=== PATIENT | female | born 1955 | race African-American/Black ===

== ENCOUNTER → 2016-10-05 | Outpatient (CLI) | payer MEDICAID ==
[~2016-10-05] VITALS: Ht 172.7 cm; Wt 133.4 kg
[~2016-10-05] MED LIST: 00186-0370-20 IH; ACCUPRIL40MGTAB PO; ADALAT CC60 MG PO; ALDACTONE50 MG PO; APRESOLINE 25MG25 MG PO; CATAPRES 0.1MG0.1 MG PO; CATAPRES-TTS 30.3 MG TD; DESYREL 50MG50 MG PO; FLEXERIL 1010 MG/TAB PO; FLOVENT 110MCG7.9 GM IH; HCTZ12.5TAB PO; HYGROTON50 MG PO; LASIX 40MG TABL40 MG PO; LIPITOR 10MG10 MG PO; NAPROSYN500 MG PO; NORVASC 10MG10 MG PO; PERCOCET 325 MG1 TAB PO; PLAVIX 75MG TAB75 MG PO; PRIL40 PO; PROAIR HFA0.09 MG/AC IH; PROTONIX20 MG PO; TOPROL XL100 MG PO; TOPROL XL200 MG PO; TYLENOL 325MG325 MG PO; ULTRAM 50MG TAB50 MG PO
== END ==
LOC: LIGHT 05-04 14:29
DX: I10 Essential (primary) hypertension (principal); G47.33 Obstructive sleep apnea (adult) (pediatric); E66.01 Morbid (severe) obesity due to excess calories; Z68.41 Body mass index [BMI] 40.0-44.9, adult; M15.8 Other polyosteoarthritis

== ENCOUNTER → 2017-01-03 | Outpatient (CLI) | payer MEDICAID | LOC: MHCPAIN 08:57 | DX: G89.29 Other chronic pain (principal); M47.817 Spondylosis without myelopathy or radiculopathy, lumbosacral region; M54.16 Radiculopathy, lumbar region; M53.3 Sacrococcygeal disorders, not elsewhere classified | CPT/HCPCS: G0463 ==

== ENCOUNTER 2017-03-27 11:33 | Emergency (ER) | payer MEDICAID ==
[~2017-03-27] VITALS: Ht 175.3 cm; Wt 128.6 kg
[~2017-03-27 11:33] MED LIST changes: -00186-0370-20 IH; -ADALAT CC60 MG PO; -APRESOLINE 25MG25 MG PO; -HYGROTON50 MG PO; -LASIX 40MG TABL40 MG PO; -PROTONIX20 MG PO
[2017-03-27 11:35] VITALS: TEMP 97
[2017-03-27 12:05] LABS: BASO % 0.3 % (0.0-2.0); EOS # 0.1 (0.0-0.7); EOS % 1.7 % (0-4.0); GRAN # 3.8 (1.4-6.5); LYMPH # 2.4 (1.2-3.4); LYMPH % 35.3 % (20.0-51.0); MEAN CELL VOLUME 84 fl (80.0-100.0); MEAN CORPUSCULAR HEMOGLOBIN 26 pg (27.0-31.0); MEAN CORPUSCULAR HGB CONC 32 g/dl (33.0-37.0); MEAN PLATELET VOLUME 10.5 fl (7.4-10.4); MONO # 0.4 (0.1-0.6); MONO % 6.3 % (1.7-9.3); PLATELET COUNT 305 K/mm3 (130-400); RED BLOOD COUNT 4.55 M/mm3 (4.10-5.30); REDCELL DISTRIBUTION WIDTH-CV 16.4 % (11.5-14.5); WHITE BLOOD COUNT 6.9 K/mm3 (4.8-10.8)
[2017-03-27 12:11] LABS: PROTHROMBIN TIME 11.3 SECONDS (9.7-12.8)
[2017-03-27 12:14] LABS: PARTIAL THROMBOPLASTIN TIME 28.8 SECONDS (26.0-37.0)
[2017-03-27 12:15] LABS: ADJUSTED CALCIUM 8.9 mg/dL (8.4-10.2); ALBUMIN 3.7 gm/dL (3.5-5.0); BILIRUBIN,TOTAL 0.6 mg/dL (0.0-1.0); CALCIUM 8.7 mg/dL (8.4-10.2); CREATININE, serum 1.11 mg/dL (0.52-1.25); POTASSIUM 3.5 mmol/L (3.4-5.0); TOTAL PROTEIN 8.4 gm/dL (6.4-8.2)
[2017-03-27] MEDS ORDERED: HYGROTON50 MG PO (12:23)
[2017-03-27 12:25] LABS: TROPONIN-I 0.028 ng/mL (0.000-0.034)
[2017-03-27] MEDS ORDERED: LASIX 40MG TABL40 MG PO (12:25)
[2017-03-27] MEDS ORDERED: APRESOLINE 25MG25 MG PO (12:25)
[2017-03-27] MEDS ORDERED: PROTONIX20 MG PO (12:27)
[2017-03-27] MEDS ORDERED: 00186-0370-20 IH (12:28)
[2017-03-27] MEDS ORDERED: ADALAT CC60 MG PO (12:28)
[2017-03-27 12:58] VITALS: BP 191/110; PULSE 81
== END 2017-03-27 13:00 | disposition home or self-care (01) ==
LOC: COL.ER 11:33
PROVIDERS: Family Medicine
DX: I10 Essential (primary) hypertension (principal); R51 Headache; Z79.02 Long term (current) use of antithrombotics/antiplatelets

== ENCOUNTER 2017-06-22 12:23 | Inpatient (IN) | payer MEDICAID ==
[~2017-06-22] VITALS: Ht 175.3 cm; Wt 128.0 kg
[2017-06-22] VITALS (224 sets, daily range): BP systolic 184; BP diastolic 109; PULSE 84; TEMP 97.8; O2SAT 83–96
[~2017-06-22 12:23] MED LIST changes: +00186-0370-20 IH; +ADALAT CC60 MG PO; +APRESOLINE 25MG25 MG PO; +HYGROTON50 MG PO; +LASIX 40MG TABL40 MG PO; +PROTONIX20 MG PO
[2017-06-22] MEDS ORDERED: NEURONTIN600 MG/TAB PO (12:44)
[2017-06-22] MEDS ORDERED: IMDUR 30MG30 MG/TAB PO (12:45)
[2017-06-22 13:02] LABS: BASO % 0.3 % (0.0-2.0); EOS # 0.2 (0.0-0.7); EOS % 2.6 % (0-4.0); GRAN # 4.3 (1.4-6.5); GRAN % 55.7 % (42.2-75.2); HEMATOCRIT 38.2 % (37.0-47.0); LYMPH # 2.6 (1.2-3.4); LYMPH % 33.7 % (20.0-51.0); MEAN CELL VOLUME 85 fl (80.0-100.0); MEAN CORPUSCULAR HEMOGLOBIN 27 pg (27.0-31.0); MEAN CORPUSCULAR HGB CONC 31 g/dl (33.0-37.0); MEAN PLATELET VOLUME 10.4 fl (7.4-10.4); MONO # 0.6 (0.1-0.6); MONO % 7.4 % (1.7-9.3); PLATELET COUNT 294 K/mm3 (130-400); RED BLOOD COUNT 4.49 M/mm3 (4.10-5.30); WHITE BLOOD COUNT 7.7 K/mm3 (4.8-10.8)
[2017-06-22 13:10] LABS: PROTHROMBIN TIME 11.2 SECONDS (9.7-12.8)
[2017-06-22 13:13] LABS: PARTIAL THROMBOPLASTIN TIME 26.3 SECONDS (26.0-37.0)
[2017-06-22 13:30] LABS: ADJUSTED CALCIUM 9.1 mg/dL (8.4-10.2); ALBUMIN 3.9 gm/dL (3.5-5.0); BILIRUBIN,TOTAL 0.5 mg/dL (0.0-1.0); CREATININE, serum 1.27 mg/dL (0.52-1.25)
[2017-06-22 13:42] LABS: TROPONIN-I 0.023 ng/mL (0.000-0.034)
[2017-06-22 15:17] LABS: C-REACTIVE PROTEIN 2.5 mg/dL (0.0-0.9)
[2017-06-22 16:50] LABS: TROPONIN-I 0.024 ng/mL (0.000-0.034)
[2017-06-22] MEDS ORDERED: VOLTAREN GEL 1%1 TU TP (20:01)
[2017-06-22] MEDS ORDERED: LASIX 20MG TABL20 MG PO (20:12)
[2017-06-23] VITALS (520 sets, daily range): BP systolic 127–153; BP diastolic 80–114; PULSE 77–97; TEMP 97.4–98.3; O2SAT 82–99
[2017-06-24 04:12] VITALS: BP 120/83; PULSE 79; TEMP 97.7
[2017-06-24 07:53] VITALS: BP 144/82; PULSE 66; TEMP 98.1
[2017-06-24 12:29] VITALS: BP 155/98; PULSE 87; TEMP 98.8
[2017-06-24 17:04] VITALS: BP 150/102; PULSE 93; TEMP 97.9
[2017-06-24 20:22] VITALS: BP 160/100; PULSE 94; TEMP 98.3
[2017-06-24 23:26] VITALS: BP 124/100; PULSE 98; TEMP 99.4
[2017-06-25 04:33] VITALS: BP 149/110; PULSE 91; TEMP 98.6
[2017-06-25] MEDS ORDERED: CATAPRES-TTS 30.3 MG TD (07:50)
[2017-06-25 07:55] VITALS: BP 138/81; PULSE 95; TEMP 98.2
[2017-06-25] MEDS ORDERED: PROCARDIA XL 3030 MG PO (10:20)
[2017-06-25] MEDS ORDERED: LASIX 20MG TABL20 MG PO (10:21)
[2017-06-25] MEDS ORDERED: HCTZ 25MG TAB25 MG PO (10:21)
[2017-06-25 12:26] VITALS: BP 136/89; PULSE 91; TEMP 98
== END 2017-06-25 12:56 | disposition home or self-care (01) | DRG 305 ==
LOC: COL.ER 12:23 → MEDICAL 17:29 → ICU 17:29 → MEDICAL 06-23 15:13
PROVIDERS: Emergency Medicine
DX: I16.0 Hypertensive urgency (principal); I12.9 Hypertensive chronic kidney disease with stage 1 through stage 4 chronic kidney disease, or unspecified chronic kidney disease; N18.9 Chronic kidney disease, unspecified; D64.9 Anemia, unspecified
CPT/HCPCS: 99231-AI; 99232-AI; J0360; J1170; J1644; J2270; J2405; J2550; J7050

== ENCOUNTER → 2017-11-22 | Outpatient (CLI) | payer MEDICAID ==
[~2017-11-22] VITALS: Ht 175.3 cm; Wt 132.9 kg
[~2017-11-22] MED LIST changes: +DAZIDOX10 MG PO; +HCTZ 25MG TAB25 MG PO; +IMDUR 30MG30 MG/TAB PO; +LASIX 20MG TABL20 MG PO; +NEURONTIN600 MG/TAB PO; -PERCOCET 325 MG1 TAB PO; +PROCARDIA XL 3030 MG PO; +VOLTAREN GEL 1%1 TU TP
[2017-11-22 08:41] VITALS: BP 170/96; PULSE 68
== END ==
LOC: LIGHT
DX: I10 Essential (primary) hypertension (principal); G47.33 Obstructive sleep apnea (adult) (pediatric); E66.01 Morbid (severe) obesity due to excess calories; Z68.41 Body mass index [BMI] 40.0-44.9, adult; Z71.3 Dietary counseling and surveillance; M15.9 Polyosteoarthritis, unspecified
CPT/HCPCS: G0463

== ENCOUNTER → 2017-12-20 | Outpatient (CLI) | payer MEDICAID ==
[~2017-12-20] VITALS: Ht 175.3 cm; Wt 130.2 kg
[~2017-12-20] MED LIST changes: +PROCARDIA XL 6060 MG PO
[2017-12-20 10:29] VITALS: BP 142/104; PULSE 88
== END ==
LOC: LIGHT 10:14
DX: I10 Essential (primary) hypertension (principal); G47.33 Obstructive sleep apnea (adult) (pediatric); E66.01 Morbid (severe) obesity due to excess calories; Z68.41 Body mass index [BMI] 40.0-44.9, adult; Z71.3 Dietary counseling and surveillance; M15.9 Polyosteoarthritis, unspecified
CPT/HCPCS: G0463

== ENCOUNTER 2018-02-28 12:30 | Outpatient (RCR) | payer MEDICAID ==
[2018-03-01] MEDS ORDERED: DULCOLAX TAB5 MG PO (10:31)
[2018-03-01] MEDS ORDERED: COREG 25MG25 MG/TAB PO (10:32)
[2018-03-01] MEDS ORDERED: LASIX 20MG TABL20 MG PO (10:33)
[2018-03-01] MEDS ORDERED: ZOFRAN ODT4 MG PO (10:33)
[2018-03-01] MEDS ORDERED: LIPITOR 40MG TA40 MG PO (10:34)
[2018-03-01] MEDS ORDERED: CARAFATE S1 GM/10 ML PO (10:34)
[2018-03-01] MEDS ORDERED: K-DUR20 MEQ PO (10:35)
== END 2018-03-06 11:16 | disposition home or self-care (01) ==
LOC: WSPT 12:30
DX: M54.5 Low back pain (principal); G89.29 Other chronic pain

== ENCOUNTER 2018-03-01 09:52 | Day surgery (SDC) | payer MEDICAID ==
[~2018-03-01] VITALS: Ht 175.3 cm; Wt 133.3 kg
[2018-03-01 10:10] VITALS: BP 197/137; PULSE 85; TEMP 98.2
[2018-03-01] MEDS ORDERED: DULCOLAX TAB5 MG PO (10:31)
[2018-03-01] MEDS ORDERED: COREG 25MG25 MG/TAB PO (10:32)
[2018-03-01] MEDS ORDERED: ZOFRAN ODT4 MG PO (10:33)
[2018-03-01] MEDS ORDERED: LASIX 20MG TABL20 MG PO (10:33)
[2018-03-01] MEDS ORDERED: CARAFATE S1 GM/10 ML PO (10:34)
[2018-03-01] MEDS ORDERED: LIPITOR 40MG TA40 MG PO (10:34)
[2018-03-01] MEDS ORDERED: K-DUR20 MEQ PO (10:35)
[2018-03-01 11:35] VITALS: BP 172/104; PULSE 84; TEMP 97.6
[2018-03-01 11:50] VITALS: BP 160/116; PULSE 88
[2018-03-01 12:05] VITALS: BP 161/149; PULSE 84
[2018-03-01 13:58] VITALS: BP 179/120; PULSE 84
== END 2018-03-01 12:55 | disposition home or self-care (01) ==
LOC: SDCO 09:52
DX: K21.9 Gastro-esophageal reflux disease without esophagitis (principal); J45.909 Unspecified asthma, uncomplicated; K59.00 Constipation, unspecified; D50.9 Iron deficiency anemia, unspecified; E66.01 Morbid (severe) obesity due to excess calories; I25.10 Atherosclerotic heart disease of native coronary artery without angina pectoris; I12.9 Hypertensive chronic kidney disease with stage 1 through stage 4 chronic kidney disease, or unspecified chronic kidney disease; N18.3 Chronic kidney disease, stage 3 (moderate); G47.33 Obstructive sleep apnea (adult) (pediatric); M17.9 Osteoarthritis of knee, unspecified; G89.29 Other chronic pain; Z86.73 Personal history of transient ischemic attack (TIA), and cerebral infarction without residual deficits; Z79.82 Long term (current) use of aspirin
CPT/HCPCS: J2704

== ENCOUNTER 2018-05-06 12:12 | Inpatient (IN) | payer MEDICAID ==
[2018-05-06] VITALS (14 sets, daily range): BP systolic 124–166; BP diastolic 75–104; PULSE 70–78; TEMP 97–98; O2SAT 91–100
[~2018-05-06] VITALS: Ht 175.3 cm; Wt 138.0 kg
[~2018-05-06 12:12] MED LIST changes: +CARAFATE S1 GM/10 ML PO; +COREG 25MG25 MG/TAB PO; +DULCOLAX TAB5 MG PO; +K-DUR20 MEQ PO; +LIPITOR 40MG TA40 MG PO; +ZOFRAN ODT4 MG PO
[2018-05-06 12:56] LABS: BASO % 0.4 % (0.0-2.0); EOS # 0.1 (0.0-0.7); EOS % 1.5 % (0-4.0); GRAN # 4.4 (1.4-6.5); GRAN % 56.6 % (42.2-75.2); HEMOGLOBIN 11.9 g/dl (12.5-16.0); LYMPH # 2.7 (1.2-3.4); LYMPH % 34.2 % (20.0-51.0); MEAN CELL VOLUME 85 fl (80.0-100.0); MEAN CORPUSCULAR HEMOGLOBIN 27 pg (27.0-31.0); MEAN CORPUSCULAR HGB CONC 32 g/dl (33.0-37.0); MEAN PLATELET VOLUME 10.5 fl (7.4-10.4); MONO # 0.6 (0.1-0.6); PLATELET COUNT 262 K/mm3 (130-400); RED BLOOD COUNT 4.35 M/mm3 (4.10-5.30); REDCELL DISTRIBUTION WIDTH-CV 16.2 % (11.5-14.5)
[2018-05-06 13:01] LABS: PROTHROMBIN TIME 11.8 SECONDS (9.7-12.8)
[2018-05-06 13:04] LABS: PARTIAL THROMBOPLASTIN TIME 30.8 SECONDS (26.0-37.0)
[2018-05-06 13:12] LABS: ALBUMIN 3.5 gm/dL (3.5-5.0); BILIRUBIN,TOTAL 0.4 mg/dL (0.0-1.0); C-REACTIVE PROTEIN 2.5 mg/dL (0.0-0.9); CALCIUM 8.5 mg/dL (8.4-10.2); CREATININE, serum 1.32 mg/dL (0.52-1.25); POTASSIUM 3.6 mmol/L (3.4-5.0); TOTAL PROTEIN 8.1 gm/dL (6.4-8.2)
[2018-05-06 13:21] LABS: ERYTHROCYTE SEDIMENTATION RATE 48 mm/hr (0-30)
[2018-05-06 13:23] LABS: TROPONIN-I 0.036 ng/mL (0.000-0.034)
[2018-05-06] MEDS ORDERED: CARAFATE S1 GM/10 ML PO (13:46)
[2018-05-06] MEDS ORDERED: HYGROTON 2525 MG/TAB (13:48)
[2018-05-06] MEDS ORDERED: PROTONIX20 MG PO (13:49)
[2018-05-07] VITALS (601 sets, daily range): BP systolic 111–166; BP diastolic 79–98; PULSE 70–86; TEMP 97.1–98; O2SAT 56–100
[2018-05-07 05:56] LABS: BASO % 0.4 % (0.0-2.0); EOS # 0.1 (0.0-0.7); EOS % 1.8 % (0-4.0); GRAN # 4.3 (1.4-6.5); GRAN % 60.5 % (42.2-75.2); HEMOGLOBIN 11.2 g/dl (12.5-16.0); LYMPH # 2.1 (1.2-3.4); LYMPH % 29.1 % (20.0-51.0); MEAN CELL VOLUME 87 fl (80.0-100.0); MEAN CORPUSCULAR HEMOGLOBIN 26 pg (27.0-31.0); MEAN CORPUSCULAR HGB CONC 30 g/dl (33.0-37.0); MEAN PLATELET VOLUME 10.4 fl (7.4-10.4); MONO # 0.6 (0.1-0.6); MONO % 7.9 % (1.7-9.3); PLATELET COUNT 272 K/mm3 (130-400); RED BLOOD COUNT 4.25 M/mm3 (4.10-5.30); REDCELL DISTRIBUTION WIDTH-CV 16.1 % (11.5-14.5)
[2018-05-07 05:58] LABS: HEMATOCRIT 36.8 % (37.0-47.0)
[2018-05-07 06:08] LABS: CHOLESTEROL RISK RATIO 5.2
[2018-05-07 06:27] LABS: TROPONIN-I 0.037 ng/mL (0.000-0.034)
[2018-05-07 07:32] LABS: ALBUMIN 3.4 gm/dL (3.5-5.0); BILIRUBIN,TOTAL 0.2 mg/dL (0.0-1.0); CALCIUM 8.1 mg/dL (8.4-10.2); CREATININE, serum 1.58 mg/dL (0.52-1.25); POTASSIUM 3.7 mmol/L (3.4-5.0); TOTAL PROTEIN 7.7 gm/dL (6.4-8.2)
[2018-05-08] VITALS (227 sets, daily range): BP systolic 114–164; BP diastolic 53–114; PULSE 57–87; TEMP 97.6–98.6; O2SAT 70–100
[2018-05-08 06:36] LABS: BASO % 0.4 % (0.0-2.0); EOS # 0.2 (0.0-0.7); EOS % 2.7 % (0-4.0); GRAN # 3.9 (1.4-6.5); GRAN % 53.8 % (42.2-75.2); LYMPH # 2.7 (1.2-3.4); LYMPH % 36.3 % (20.0-51.0); MEAN CELL VOLUME 87 fl (80.0-100.0); MEAN CORPUSCULAR HEMOGLOBIN 27 pg (27.0-31.0); MEAN CORPUSCULAR HGB CONC 31 g/dl (33.0-37.0); MEAN PLATELET VOLUME 11.1 fl (7.4-10.4); MONO # 0.5 (0.1-0.6); MONO % 6.4 % (1.7-9.3); PLATELET COUNT 274 K/mm3 (130-400); RED BLOOD COUNT 4.15 M/mm3 (4.10-5.30)
[2018-05-08 06:41] LABS: HEMATOCRIT 36.1 % (37.0-47.0)
[2018-05-08 06:47] LABS: ALBUMIN 3.4 gm/dL (3.5-5.0); BILIRUBIN,TOTAL 0.2 mg/dL (0.0-1.0); CALCIUM 8.5 mg/dL (8.4-10.2); CREATININE, serum 1.92 mg/dL (0.52-1.25); POTASSIUM 4.1 mmol/L (3.4-5.0); TOTAL PROTEIN 7.6 gm/dL (6.4-8.2)
[2018-05-09 00:41] VITALS: BP 139/88; PULSE 84; TEMP 98.5
[2018-05-09 04:00] VITALS: BP 141/85; PULSE 76; TEMP 98.5
[2018-05-09 06:35] LABS: BASO % 0.3 % (0.0-2.0); EOS # 0.1 (0.0-0.7); EOS % 1.8 % (0-4.0); GRAN # 4.6 (1.4-6.5); HEMATOCRIT 37.3 % (37.0-47.0); HEMOGLOBIN 11.6 g/dl (12.5-16.0); LYMPH # 2.2 (1.2-3.4); MEAN CELL VOLUME 86 fl (80.0-100.0); MEAN CORPUSCULAR HEMOGLOBIN 27 pg (27.0-31.0); MEAN CORPUSCULAR HGB CONC 31 g/dl (33.0-37.0); MEAN PLATELET VOLUME 10.8 fl (7.4-10.4); MONO # 0.6 (0.1-0.6); MONO % 7.6 % (1.7-9.3); PLATELET COUNT 293 K/mm3 (130-400); RED BLOOD COUNT 4.33 M/mm3 (4.10-5.30); REDCELL DISTRIBUTION WIDTH-CV 15.9 % (11.5-14.5)
[2018-05-09 06:48] LABS: ALBUMIN 3.6 gm/dL (3.5-5.0); BILIRUBIN,TOTAL 0.2 mg/dL (0.0-1.0); CALCIUM 8.4 mg/dL (8.4-10.2); CREATININE, serum 1.69 mg/dL (0.52-1.25); POTASSIUM 4.1 mmol/L (3.4-5.0); TOTAL PROTEIN 8.1 gm/dL (6.4-8.2)
[2018-05-09 07:31] VITALS: BP 147/80; PULSE 77; TEMP 97.9
[2018-05-09 12:20] VITALS: BP 129/86; PULSE 72; TEMP 97.9
[2018-05-09 15:19] VITALS: BP 116/84; PULSE 70; TEMP 98.1
[2018-05-09 19:31] VITALS: BP 114/86; PULSE 79; TEMP 98.8
[2018-05-10 03:43] VITALS: BP 123/88; PULSE 92; TEMP 98.2
[2018-05-10 08:01] LABS: BASO % 0.2 % (0.0-2.0); EOS # 0.1 (0.0-0.7); EOS % 1.2 % (0-4.0); GRAN # 4.8 (1.4-6.5); HEMOGLOBIN 11.1 g/dl (12.5-16.0); LYMPH # 2.6 (1.2-3.4); LYMPH % 31.7 % (20.0-51.0); MEAN CELL VOLUME 87 fl (80.0-100.0); MEAN CORPUSCULAR HEMOGLOBIN 26 pg (27.0-31.0); MEAN CORPUSCULAR HGB CONC 30 g/dl (33.0-37.0); MEAN PLATELET VOLUME 11.4 fl (7.4-10.4); MONO # 0.6 (0.1-0.6); MONO % 7.7 % (1.7-9.3); PLATELET COUNT 296 K/mm3 (130-400); RED BLOOD COUNT 4.21 M/mm3 (4.10-5.30); REDCELL DISTRIBUTION WIDTH-CV 16.1 % (11.5-14.5)
[2018-05-10 08:03] LABS: HEMATOCRIT 36.5 % (37.0-47.0)
[2018-05-10 08:16] LABS: ALBUMIN 3.6 gm/dL (3.5-5.0); BILIRUBIN,TOTAL 0.4 mg/dL (0.0-1.0); CALCIUM 8.7 mg/dL (8.4-10.2); CREATININE, serum 2.44 mg/dL (0.52-1.25); POTASSIUM 3.9 mmol/L (3.4-5.0); TOTAL PROTEIN 8.1 gm/dL (6.4-8.2)
[2018-05-10 08:58] VITALS: BP 144/88; PULSE 79; TEMP 98.5
[2018-05-10 12:33] VITALS: BP 122/81; PULSE 76; TEMP 98.6
[2018-05-10 16:48] VITALS: BP 126/77; PULSE 76; TEMP 98.7
[2018-05-10 19:35] VITALS: BP 124/82; PULSE 79; TEMP 98.4
[2018-05-10 23:41] VITALS: BP 126/78; PULSE 77; TEMP 98.4
[2018-05-11 03:54] VITALS: BP 136/85; PULSE 86; TEMP 98.3
[2018-05-11 06:49] LABS: BASO % 0.1 % (0.0-2.0); EOS # 0.2 (0.0-0.7); EOS % 1.9 % (0-4.0); GRAN # 5.3 (1.4-6.5); GRAN % 63.2 % (42.2-75.2); HEMOGLOBIN 10.9 g/dl (12.5-16.0); LYMPH # 2.4 (1.2-3.4); LYMPH % 28.2 % (20.0-51.0); MEAN CELL VOLUME 86 fl (80.0-100.0); MEAN CORPUSCULAR HEMOGLOBIN 26 pg (27.0-31.0); MEAN CORPUSCULAR HGB CONC 31 g/dl (33.0-37.0); MEAN PLATELET VOLUME 10.6 fl (7.4-10.4); MONO # 0.5 (0.1-0.6); MONO % 6.2 % (1.7-9.3); PLATELET COUNT 263 K/mm3 (130-400); RED BLOOD COUNT 4.16 M/mm3 (4.10-5.30); REDCELL DISTRIBUTION WIDTH-CV 16.1 % (11.5-14.5)
[2018-05-11 06:54] LABS: HEMATOCRIT 35.6 % (37.0-47.0)
[2018-05-11 07:10] LABS: CALCIUM 8.6 mg/dL (8.4-10.2); CREATININE, serum 2.36 mg/dL (0.52-1.25); MAGNESIUM 1.9 mg/dL (1.6-2.3); POTASSIUM 3.9 mmol/L (3.4-5.0)
[2018-05-11 07:26] VITALS: BP 132/77; BP 143/39; PULSE 80; TEMP 98.6
[2018-05-11 10:56] VITALS: BP 114/67; PULSE 79; TEMP 98.8
[2018-05-11] MEDS ORDERED: TYLENOL 325MG325 MG PO (11:59)
[2018-05-11] MEDS ORDERED: IMODIUM 2MG CAPS2 MG PO (12:00)
== END 2018-05-11 17:30 | disposition home or self-care (01) | DRG 253 ==
LOC: COL.ER 12:12 → ICU 14:22 → MEDICAL 05-08 16:18
PROVIDERS: Emergency Medicine; Hospitalist; Internal Medicine Nephrology; Physician Assistant; Surgery
PROC: 03BS0ZX Excision of Right Temporal Artery, Open Approach, Diagnostic (ICD-10-PCS; principal; 2018-05-08 09:30)
DX: I16.0 Hypertensive urgency (principal); G45.9 Transient cerebral ischemic attack, unspecified; Z68.41 Body mass index [BMI] 40.0-44.9, adult; I12.9 Hypertensive chronic kidney disease with stage 1 through stage 4 chronic kidney disease, or unspecified chronic kidney disease; N18.3 Chronic kidney disease, stage 3 (moderate); D63.1 Anemia in chronic kidney disease; I70.1 Atherosclerosis of renal artery; R51 Headache; G47.33 Obstructive sleep apnea (adult) (pediatric); Z91.19 Patient's noncompliance with other medical treatment and regimen; R74.8 Abnormal levels of other serum enzymes; Z20.6 Contact with and (suspected) exposure to human immunodeficiency virus [HIV]; K21.0 Gastro-esophageal reflux disease with esophagitis; E66.01 Morbid (severe) obesity due to excess calories
CPT/HCPCS: 99223-AI; 99232-AI; 99233-AI; 99239; A9585; C1760; C1887; C1894; J1170; J1644; J2060; J2250; J2405; J2704; J3010; J7030; J7050; J7070; J7120; Q9967